=== PATIENT | male | born 1950 | race Caucasian/White ===

== ENCOUNTER 2020-01-11 09:31 | Emergency (ER) | payer OTHER, MEDICARE ==
--- OUTSIDE RECORDS SUMMARY | 2020-01-11 09:34 | XMS REPORT ---
:1950 Author Organization [facility] t Address [address] [place] [address] Care Team Providers Name Role Phone Unavailable Unavailable Unavailable Payers Payer Name Policy Type Policy Number Effective Date Expiration D ate Problems This patient has no known problems. Allergies, Adverse Reactions, Alerts Allergy Allergy Status Severity Reaction(s) Onset Inactive Treating C omments Name Type Date Date Clinician codeine DA Active MO 2019-04 00:00:0 0 codeine DA Active MO 2019-03 00:00:0 0 Medications This patient has no known medications. Results Test Description Test Time Test Comments Text Results Atomic Results Result Comments - MRI LW JNT W/O CONT RT 2019-05-01 15:15:00 Patient Name: KAROL BERMAN Unit No: [id number] EXAMS: CPT COD E: [id number] MRI LW JNT W/[place] [id number] MRI OF T HE RIGHT KNEE, WITHOUT CONTRAST DIAGNOSIS: 1. 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 Vertically oriented signal i s seen in the periphery of the body medial meniscus which is indet erminate and may be related to recent arthroscopy. A small recurr ent tear cannot be excluded. 2. There is a small horizontal tear free edge body of the latera l meniscus which was not evide nt on the previous exam. 3. Reactive bone marrow edema m edial tibial plateau. No evidence of fracture. 4. Small full-thickness chondral defe ct overlying the superior aspec t medial patellar facet unchan ged from the previous exam. 5. Small proximal ACL ganglion cyst unchanged in the interval fr om the previous exam. 6. Mild prepatellar bursitis. Mild proximal patellar tendinitis COMPARISON EXAM: The c urrent exam is compared to a previo us exam dated March 27, 2019. TECHNIQUE: Sagittal, axi al and coronal fat-sat spin density , sagittal T1 and sagitt al oblique T2-weighted sequence s are obtained of the descri bed right knee. C LINICAL HISTORY: FIND INGS: MENISCI: Medial a nd lateral meniscal abnormaliti es as described. CR UCIATE LIGAMENTS: ACL is intact. P CL is intact. COLLA TERAL LIGAMENTS: Medial and later al collateral ligaments as well as the quadriceps tendons is intact. Mild proximal patellar tendinitis. OS SEOUS STRUCTURES: Low-grade chondr al loss overlying the medial f emoral condyle. Bone marrow edema medial tibial plateau. PATELLOFEMORAL COMPARTMENT: Chondral abnormality involving the patellofemoral joint. No pa tellar tilt, or subluxation. Media l and lateral patellar retinacu la are intact. SOFT T ISSUES: Small joint effusion. No po pliteal cyst. No soft tissue masses. [facility] NAME: KAROL BERMAN JR [address] [facility] PHYS: Lito Ramires : 1950 AGE: 68 SEX: M [place], [place] [address] LOC: Y.MRI PHONE #: [phone] EXAM DATE: 05/01/2019 STA TUS: REG CLI FAX #: [phone] RAD #: D/C DT PAGE 1 Signed Report (CONTINUED) Patient Name: KAROL BERMAN JR Unit No: [id number] EXAMS: CPT CODE: [id number] M RI LW JNT W/[place] [id number] <Contin ued> Electronically S igned by Jodi Frausto MD on 05/01/20 19 at 1515 Reported and signed by: Jodi Frausto MD CC: Lito Low MD Technologist: BAB U, FEBIN MRI Transcribed D/T: 04/03 (6924) t.OBEDR.GVG [facility] NAME: KAROL BERMAN [address] [facility] PHYS: Lito Ramires : 1950 AGE: 68 SEX: M [place], [place] [address] LOC: Y.MRI PHONE #: [phone] EXAM DATE: 05/01/2019 STA TUS: REG CLI FAX #: [phone] RAD #: D/C DT PAGE 2 Signed Report Patient Name: KAROL BERMAN Unit No: [id number] EXAMS: CPT CODE: [id number] M RI LW JNT W/[place] [id number] <Contin ued> Orig Print D/T: S: 9 (6883) [facility] NAME: KAROL BERMAN [facility] [address] [facility] PHYS: Lito Ramires : 1950 AGE: 68 SEX: M [place] [address] LOC : Y.MRI PHONE #: [phone] EXAM DATE: 05/01/2019 S TATUS: REG CLI FAX #: RAD #: D/C DT PAGE 3 Signed Report - MRI LW JNT W/O CONT RT 2019-03-27 12:37:00 Patient Name: KAROL BERMAN Unit No: [id number] EXAMS: CPT CODE: [id number] MRI LW JNT W/[place] [id number] MRI OF T HE RIGHT KNEE, WITHOUT CONTRAST DIAGNOSIS: Hor izontal tear posterior horn and body medial meniscus. There is a small superimposed radial tear ape x posterior horn medial menisc us 2. 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 3. Prox imal ACL ganglion cyst. COMPARISON EXAM: None TECHNIQUE: Sagittal, axial a nd coronal fat-sat spin density , sagittal T1 and sagitt al oblique T2-weighted sequence s are obtained of the descri bed right knee. C LINICAL HISTORY: FIND INGS: MENISCI: Medial m eniscal tears as described. Lateral meniscus is intact. CRUCIATE LIGAMENTS: ACL is intact. ACL ganglion cyst. PCL is intact. COLLAT ERAL LIGAMENTS: Medial and later al collateral ligaments as well as patellar and quadriceps t endons are intact. O SSEOUS STRUCTURES: No significant c hondral abnormality medial and lateral compartment knee joint. Vis ualized bony structures of the femur and tibia are within normal limits in signal. PATELLOFEMORAL COMPARTMENT: Chondral abnormality as described abo ve involving the patellofemoral joint. No patellar tilt, or subluxa tion. Medial and lateral mccall lar retinacula are intact. SOFT TISSUES: No significan t joint effusion. No popliteal cyst . No soft tissue masses. Electronically Sign ed by Jodi Frausto MD on 03/27/2019 at 4611 Repo rted and signed by: Jodi Frausto MD [facility] NAME: KAROL BERMAN [address] [place] [address] PHYS: Lito Ramires : 1950 AGE: 68 SEX: M [place] [address] LOC : Y.MRI PHONE #: [phone] EXAM DATE: 03/27/2019 S TATUS: REG CLI FAX #: [phone] RAD #: D/C DT PAGE 1 Signed Report (CONTINUED) Patient Name: KAROL BERMAN Unit No: [id number] EXAMS: CPT CODE: [id number] M RI LW JNT W/[place] [id number] <Contin ued> CC: Lito Low MD Technologist: Jeffrey Licona,RT(R) Transcribed D/ (3217) t.GVG [facility] NAME : KAROL BERMAN [address] [place] [address] PHYS: ALLIEWAYLON Lito Allen : 1950 AGE: 68 SEX: M [place], [place] [address] LOC: Y.MRI PHONE #: [phone] EXAM DATE: 03/27/2019 STA TUS: REG CLI FAX #: [phone] RAD #: D/C DT PAGE 2 Signed Report Patient Name: KAROL BERMAN Unit No: [id number] EXAMS: CPT CODE: [id number] M RI LW JNT W/[place] [id number] <Contin ued> Orig Print D/T: S: 9 (1240) [facility] NAME: KAROL BERMAN [address] [facility] PHYS: Lito Ramires : 1950 AGE: 68 SEX: [place], [place] [address] LOC : Y.MRI PHONE #: [phone] EXAM DATE: 03/27/2019 S TATUS: REG CLI FAX #: [phone] RAD #: D/C DT PAGE 3 Signed Report
[2020-01-11] MEDS ORDERED: TETANUS & DIPHTHERIA TOX,ADULT 0.5 ML VIAL ONE (10:00)
--- NOTE | 2020-01-11 10:33 | RAD REPORT ---
EXAM DESCRIPTION: - Finger-Thumb Left - 01/11/2020 10:12 am CLINICAL HISTORY: injurylaceration, table saw injury, History indicates left index finger injury COMPARISON: No comparisons TECHNIQUE: A three-view left hand examination was performed centered on the left thumb and left inde x finger. FINDINGS: Three-view examination was performed. There is no fracture, dislocation or acute bone proc ess seen. Advanced degenerative change present at the trapezial first metacarpal articulation. The amanda int space is narrowed with sclerotic and spurring changes along the articular surfaces. There is soft tissue calcification posterior to the joint. This is unrelated to the acute injury. Specific site of laceration is not indicated. No joint abnormality seen. No foreign body in the soft tissues. IMPRESSION: No acute bone or joint finding. Prominent degenerative change as detailed at the trapezi al first metacarpal joint. No foreign body in the soft tissues.
[2020-01-11] MEDS ORDERED: BUPIVACAINE 0.5% PF 10 ML VIAL ONE (10:35)
[2020-01-11] MEDS ORDERED: LIDOCAINE 1% 20 ML MDV ONE (10:35)
--- NOTE | 2020-01-11 11:12 | EDPHYS ---
Physician Documentation [facility] Name: Guillermo Avina Jr Age: 69 yrs Sex: Male : 1950 Arrival Date: 01/11/2020 Time: 09:35 Bed 17 Private MD: Bryce Mann E ED Physician Collin Trujillo HPI: 01/10 09:50 This 69 yrs old Male presents to ER via Ambulatory with complaints of Finger cp Injury. 09:50 The patient or guardian reports injury, a laceration, pain, tenderness. cp 09:50 The complaints affect the distal phalanx left index finger. Context: The problem was cp sustained at home, resulted from use of tablesaw. Onset: The symptoms/episode began/occurred just prior to arrival. Associated signs and symptoms: Pertinent negatives: numbness distally. Historical: - Allergies: 09:50 Codeine; ss - Immunization history:: Adult Immunizations up to date. - Social history:: Smoking status: Patient denies any tobacco usage or history of. ROS: 09:55 Constitutional: Negative for body aches, chills, fever, poor PO intake. cp 09:55 Eyes: Negative for injury, pain, redness, and discharge. cp 09:55 Cardiovascular: Negative for chest pain. 09:55 Respiratory: Negative for cough, shortness of breath, wheezing. 09:55 Abdomen/GI: Negative for abdominal pain, nausea, vomiting, and diarrhea. 09:55 Skin: Positive for laceration(s), of the distal phalanx left index finger. 09:55 All other systems are negative. Exam: 10:05 Constitutional: The patient appears in no acute distress, alert, awake, well developed, cp well nourished. 10:05 Head/Face: Normocephalic, atraumatic. cp 10:05 Musculoskeletal/extremity: Extremities: grossly normal except: noted in the distal phalanx left index finger: deformity, pain, tenderness, noted avulsion of skin and partial nail, Perfusion: the extremity is normally perfused throughout, Sensation intact. Vital Signs: 09:47 Pulse 54; Resp 17; Temp 98.6; Pulse Ox 98% ; Weight 117.93 kg; Height 6 ft. 0 in. ss (182.88 cm); 09:51 BP 184 / 87; em 09:47 Body Mass Index 35.26 (117.93 kg, 182.88 cm) ss MDM: 09:46 Patient medically screened. cp 11:00 Differential diagnosis: open fracture, laceration, nail avulsion. cp 11:10 Data reviewed: vital signs, nurses notes, radiologic studies, plain films, and as a cp result, I will discharge patient. 11:17 ED course: [place] prescription monitoring program shows narcotic score of 110 and cp sedative score of 60. 01/10 09:49 Order name: XRAY Finger-Thumb Left: left index finger; Complete Time: 10:40 cp 01/10 10:40 Interpretation: Report reviewed. 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 Exp: em 11/15/2021. Lot #: [id number]. } Route: IM; Site: right deltoid; 11:20 Follow up: Response: No adverse reaction 10:36 Drug: Lidocaine (1 %) 10 ml {Note: adminisitered by PA. Naman} Volume: 20 ml; Route: em Infiltration; 10:36 Drug: Bupivacaine (0.5 %) 10 ml {Note: adminisitered by Naman PA.} Volume: 10 ml; em Route: Infiltration; Disposition: 18:49 Co-signature as Attending Physician, Collin Trujillo MD I agree with the assessment and kdr plan of care. Disposition: 01/11/20 11:11 Discharged to Home. Impression: Laceration without foreign body of left index finger with damage to nail. - Condition is Stable. - Discharge Instructions: Laceration Care, Adult. - Prescriptions for Tramadol 50 mg Oral Tablet - take 1 tablet by ORAL route every 8 hours As needed as needed; 20 tablet. Keflex 500 mg Oral Capsule - take 1 capsule by ORAL route every 8 hours for 10 days; 30 capsule. - Medication Reconciliation Form, Thank You Letter, Antibiotic Education, Prescription Opioid Use form. - Follow up: Bryce Mann MD; When: 2 - 3 days; Reason: Wound Recheck. - Problem is new. - Symptoms have improved. Signatures: Dispatcher [employer] Collin Gatica MD MD [facility] Sean Ascencio RN RN em Sherri Lowe RN RN Naman Herron PA PA cp Corrections: (The following items were deleted from the chart) 11:21 11:11 01/11/2020 11:11 Discharged to Home. Impression: Laceration without foreign body ss of left index finger with damage to nail. Condition is Stable. Forms are Medication Reconciliation Form, Thank You Letter, Antibiotic Education, Prescription Opioid Use. Follow up: Bryce Mann; When: 2 - 3 days; Reason: Wound Recheck. Problem is new. Symptoms have improved. cp
--- NOTE | 2020-01-11 11:12 | ER ---
Nurse's Notes [facility] Name: Guillermo Avina Jr Age: 69 yrs Sex: Male : 1950 Arrival Date: 01/11/2020 Time: 09:35 Bed 17 Private MD: Bryce Mann E Diagnosis: Laceration without foreign body of left index finger with damage to nail Presentation: 01/10 09:47 Chief complaint: Patient states: laceration to L index finger sustained 45 minutes ago ss by table saw. No active bleeding noted at this time. PT reports he is currently taking Plavix and is unsure when his last tetanus shot was. Coronavirus screen: Proceed with normal triage. Patient denies a cough. Patient denies shortness of breath or difficulty breathing. Patient denies measured and/or subjective temperature greater than 100.4F prior to today's visit. Patient denies travel on a cruise ship or to a country the [facility] currently lists as an affected area. Patient denies contact with known and/or suspected case of COVID-19. Ebola Screen: Patient denies exposure to infectious person. Patient denies travel to an Ebola-affected area in the 21 days before illness onset. Initial Sepsis Screen: Does the patient have a suspected source of infection? No. Patient's initial sepsis screen is negative. Initial Sepsis Screen: Does the patient meet any 2 criteria? No. Patient's initial sepsis screen is negative. Risk Assessment: Do you want to hurt yourself or someone else? Patient reports no desire to harm self or others. Onset of symptoms was January 11, 2020. 09:47 Method Of Arrival: Ambulatory ss 09:47 Acuity: NICKI 4 ss Historical: - Allergies: 09:50 Codeine; ss - Immunization history:: Adult Immunizations up to date. - Social history:: Smoking status: Patient denies any tobacco usage or history of. Assessment: 09:51 General: Appears in no apparent distress. comfortable, Behavior is calm, cooperative, em Denies fever. Pain: Complains of pain in left index fingernail. Neuro: Level of Consciousness is awake, alert, obeys commands, Oriented to person, place, time, situation, Appropriate for age. Cardiovascular: Capillary refill < 3 seconds Patient's skin is warm and dry. Respiratory: Airway is patent Respiratory effort is even, unlabored, Respiratory pattern is regular, symmetrical. GI: Abdomen is flat. Derm: Skin is intact, is healthy with good turgor, Skin is pink, warm \T\ dry. Musculoskeletal: Capillary refill < 3 seconds, Range of motion: intact in all extremities. Injury Description: Laceration sustained to left index fingernail is clean, 0.5 to 2.5 cm long, not bleeding, was sustained less than 30 minutes ago. a small amount of bleeding noted at this time. Vital Signs: 09:47 Pulse 54; Resp 17; Temp 98.6; Pulse Ox 98% ; Weight 117.93 kg; Height 6 ft. 0 in. ss (182.88 cm); 09:51 BP 184 / 87; em 09:47 Body Mass Index 35.26 (117.93 kg, 182.88 cm) ss ED Course: 09:35 Patient arrived in ED. am2 09:36 Bryce Mann MD is Private Physician. am2 09:43 Sean Ascencio, RN is Primary Nurse. em 09:44 Naman Herron PA is PHCP. cp 09:44 Collin Trujillo MD is Attending Physician. cp 09:50 Triage completed. ss 09:50 Arm band placed on right wrist. ss 10:12 XRAY Finger-Thumb Left: left index finger In Process Unspecified. EDMS 11:09 Bryce Mann MD is Referral Physician. cp 11:21 No provider procedures requiring assistance completed. Patient did not have IV access ss during this emergency room visit. 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 Exp: em 11/15/2021. Lot #: [id number]. } Route: IM; Site: right deltoid; 11:20 Follow up: Response: No adverse reaction ss 10:36 Drug: Lidocaine (1 %) 10 ml {Note: adminisitered by AUSTIN Florence.} Volume: 20 ml; Route: em Infiltration; 10:36 Drug: Bupivacaine (0.5 %) 10 ml {Note: adminisitered by AUSTIN Florence.} Volume: 10 ml; em Route: Infiltration; Outcome: 11:11 Discharge ordered by MD. cp 11:21 Discharged to home ambulatory, with family. ss 11:21 Condition: good 11:21 Discharge instructions given to patient, Instructed on discharge instructions, follow up and referral plans. medication usage, wound care, Demonstrated understanding of instructions, follow-up care, medications, Prescriptions given X 2. 11:21 Patient left the ED. Signatures: Dispatcher [employer] Sean Hoskins, RN Sherri Brantlye RN RN ss Naman Herron PA PA cp Moreno, Amanda am2
[2020-01-11 11:32] VITALS: BP 184/87
[2020-01-11 11:33] VITALS: TEMP 98.6; O2SAT 98
== END 2020-01-11 11:21 | disposition home or self-care (01) ==
LOC: ER 09:31
DX: S61.311A Laceration without foreign body of left index finger with damage to nail, initial encounter (principal); W31.2XXA Contact with powered woodworking and forming machines, initial encounter; Y92.009 Unspecified place in unspecified non-institutional (private) residence as the place of occurrence of the external cause; Z23 Encounter for immunization
CPT/HCPCS: 90471; 90714; 99283

== ENCOUNTER 2020-11-09 10:33 | Emergency (ER) | payer OTHER, MEDICARE ==
--- NOTE | 2020-11-09 12:21 | RAD REPORT ---
EXAM DESCRIPTION: RAD - Wrist Left 3 View - 11/09/2020 11:50 am CLINICAL HISTORY: PAIN Pain COMPARISON: Finger-Thumb Left dated 01/11/2020 FINDINGS: A calcific density is seen along the dorsum of the wrist. This calcific density was presen t on the 01/11/2020 prior study but appears to have increased in size since then. Elsewhere, no acut e fracture is seen. IMPRESSION: No acute fracture is evident. There has been increase in soft tissue calcific density along the dorsum of the wrist since 0 study. The adjacent soft tissues are mildly thickened. A follow-up nonemergent MRI of the wrist wit h contrast would be recommended for further assessment.
--- NOTE | 2020-11-09 12:30 | EDPHYS ---
Physician Documentation [facility] Name: Guillermo Avina Jr Age: 70 yrs Sex: Male : 1950 Arrival Date: 11/09/2020 Time: 10:35 Bed 24 Private MD: Bryce Mann E ED Physician David Awad HPI: 11/09 11:41 This 70 yrs old Male presents to ER via Ambulatory with complaints of Fall pm1 Injury, Hand Injury. 11:41 Details of fall: The patient fell from an upright position, while walking. Onset: The pm1 symptoms/episode began/occurred this morning, at 10:00. Associated injuries: The patient sustained left wrist. Severity of symptoms: in the emergency department the symptoms have improved, took 3 aspirins at home for the pain. The patient has not experienced similar symptoms in the past. Patient tripped inside his home and landed on his left arm. Presenting with left wrist and hand pain. No headache, head injury, neck pain, LOC. Historical: - Allergies: 10:52 Codeine; sv - PMHx: 10:52 None; sv - PSHx: 10:52 right knee; cherelle shoulder; R wrist; C4,5,6 fusion; sv - Immunization history:: Adult Immunizations up to date. - Social history:: Smoking status: Patient denies any tobacco usage or history of. ROS: 11:41 Constitutional: Negative for fever, chills, and weight loss, Cardiovascular: Negative pm1 for chest pain, palpitations, and edema, Respiratory: Negative for shortness of breath, cough, wheezing, and pleuritic chest pain, Back: Negative for injury and pain. 11:41 Skin: Negative for injury, rash, and discoloration, Neuro: Negative for headache, weakness, numbness, tingling, and seizure. 11:41 MS/extremity: Positive for pain, of the left hand and left wrist, Negative for decreased range of motion, deformity. Exam: 11:41 Constitutional: This is a well developed, well nourished patient who is awake, alert, pm1 and in no acute distress. Head/Face: Normocephalic, atraumatic. 11:41 Skin: Warm, dry with normal turgor. Normal color with no rashes, no lesions, and no evidence of cellulitis. 11:41 Neck: External neck: is normal, no acute changes, C-spine: vertebral tenderness, is not appreciated, ROM/movement: is normal, is supple, without pain, no range of motions limitations. 11:41 Cardiovascular: Exam negative for acute changes, Rate: normal, Rhythm: regular, Pulses: no pulse deficits are appreciated. 11:41 Respiratory: Exam negative for acute changes, respiratory distress, shortness of breath. 11:41 Musculoskeletal/extremity: Extremities: grossly normal except: noted in the tenderness just distal to left wrist on dorsal aspect of left hand: There is no evidence of decreased ROM, scaphoid tenderness. 11:41 Neuro: Exam negative for acute changes, Orientation: is normal, Mentation: is normal, Motor: is normal, moves all fours. Vital Signs: 10:53 BP 163 / 98; Pulse 61; Resp 16; Temp 97; Pulse Ox 99% on R/A; Weight 117.93 kg; Height sv 6 ft. 0 in. (182.88 cm); Pain 6/10; 10:53 Body Mass Index 35.26 (117.93 kg, 182.88 cm) sv MDM: 11:26 Patient medically screened. pm1 11:41 ED course: Patient refused pain medications offered in the ER. pm1 11:45 Data reviewed: vital signs. pm1 12:29 Counseling: I had a detailed discussion with the patient and/or guardian regarding: the pm1 historical points, exam findings, and any diagnostic results supporting the discharge/admit diagnosis, radiology results, the need for outpatient follow up, to return to the emergency department if symptoms worsen or persist or if there are any questions or concerns that arise at home. 11/09 10:57 Order name: Wrist Left (3 View) XRAY; Complete Time: 12:26 sv 11/09 12:26 Order name: Splint - Wrist; Complete Time: 12:59 pm1 Administered Medications: No medications were administered Disposition: 14:33 Co-signature as Attending Physician, David Awad MD. rn Disposition: 11/09/20 12:29 Discharged to Home. Impression: Unspecified sprain of left wrist. - Condition is Stable. - Discharge Instructions: RICE for Routine Care of Injuries, Wrist Pain, Wrist Splint. - Prescriptions for Tramadol 50 mg Oral Tablet - take 1 tablet by ORAL route every 8 hours as needed; 12 tablet. - Medication Reconciliation Form, Thank You Letter, Antibiotic Education, Prescription Opioid Use form. - Follow up: Emergency Department; When: As needed; Reason: Worsening of condition. Follow up: Private Physician; When: 2 - 3 days; Reason: Recheck today's complaints, Continuance of care, Re-evaluation by your physician. - Problem is new. - Symptoms have improved. Signatures: Dispatcher [employer] EDElena Multani RN RN David Awad MD MD rn Smirch, Shelby, RN RN ss Marinas, Patrick, [employer] pm1 Corrections: (The following items were deleted from the chart) 12:59 12:29 11/09/2020 12:29 Discharged to Home. Impression: Unspecified sprain of left ss wrist. Condition is Stable. Forms are Medication Reconciliation Form, Thank You Letter, Antibiotic Education, Prescription Opioid Use. Follow up: Emergency Department; When: As needed; Reason: Worsening of condition. Follow up: Private Physician; When: 2 - 3 days; Reason: Recheck today's complaints, Continuance of care, Re-evaluation by your physician. Problem is new. Symptoms have improved. pm1
--- NOTE | 2020-11-09 12:30 | ER ---
Nurse's Notes [facility] Name: Guillermo Avina Jr Age: 70 yrs Sex: Male : 1950 Arrival Date: 11/09/2020 Time: 10:35 Bed 24 Private MD: Bryce Mann E Diagnosis: Unspecified sprain of left wrist Presentation: 11/09 10:50 Chief complaint: Patient states: left hand and wrist pain after tripping and falling to the ground and landing on the left hand/wrist. Coronavirus screen: Client denies travel out of the [place] in the last 14 days. At this time, the client does not indicate any symptoms associated with coronavirus-19. Ebola Screen: No symptoms or risks identified at this time. Risk Assessment: Do you want to hurt yourself or someone else? Patient reports no desire to harm self or others. Onset of symptoms was November 09, 2020. 10:50 Method Of Arrival: Ambulatory sv 10:50 Acuity: NICKI 4 sv 10:53 Initial Sepsis Screen: Does the patient meet any 2 criteria? No. Patient's initial sv sepsis screen is negative. Does the patient have a suspected source of infection? No. Patient's initial sepsis screen is negative. Historical: - Allergies: 10:52 Codeine; sv - PMHx: 10:52 None; sv - PSHx: 10:52 right knee; cherelle shoulder; R wrist; C4,5,6 fusion; sv - Immunization history:: Adult Immunizations up to date. - Social history:: Smoking status: Patient denies any tobacco usage or history of. Screenin:37 Abuse screen: Denies threats or abuse. Denies injuries from another. Nutritional ss screening: No deficits noted. Tuberculosis screening: Never had TB. Fall Risk None identified. Assessment: 10:57 Reassessment: Received VO for hand xray from Dr Awad. sv 11:37 General: Appears in no apparent distress. comfortable, Behavior is calm, cooperative. ss Pain: Complains of pain in left wrist Pain currently is 6 out of 10 on a pain scale. Quality of pain is described as tender, Pain began suddenly, Is continuous. Neuro: Level of Consciousness is awake, alert, obeys commands, Oriented to person, place, time, situation, Speech is normal. Cardiovascular: Pulses are palpable in right radial artery and left radial artery. Respiratory: Airway is patent Respiratory effort is even, unlabored, Respiratory pattern is regular, symmetrical. GI: No signs and/or symptoms were reported involving the gastrointestinal system. : No signs and/or symptoms were reported regarding the genitourinary system. EENT: Oral mucosa is moist. Derm: Skin is intact, is healthy with good turgor, Skin is dry, Skin is pink, warm \T\ dry. normal. Musculoskeletal: Circulation, motion, and sensation intact. Range of motion: intact in all extremities, Swelling absent. 12:20 Reassessment: Patient appears in no apparent distress at this time. Patient and/or ss family updated on plan of care and expected duration. Pain level reassessed. awaiting XRAY results. Vital Signs: 10:53 BP 163 / 98; Pulse 61; Resp 16; Temp 97; Pulse Ox 99% on R/A; Weight 117.93 kg; Height sv 6 ft. 0 in. (182.88 cm); Pain 6/10; 10:53 Body Mass Index 35.26 (117.93 kg, 182.88 cm) sv ED Course: 10:35 Patient arrived in ED. mr 10:36 Bryce Mann MD is Private Physician. mr 10:52 Triage completed. sv 10:53 Arm band placed on. sv 11:26 Jeffrey Arias NP is PHCP. pm1 11:26 David Awad MD is Attending Physician. pm1 11:37 Sherri Lowe RN is Primary Nurse. ss 11:37 Patient has correct armband on for positive identification. Bed in low position. Call ss light in reach. 11:45 X-ray completed. Portable x-ray completed in exam room. Patient tolerated procedure ml well. 11:46 Wrist Left (3 View) XRAY In Process Unspecified. EDMS 12:59 No provider procedures requiring assistance completed. Patient did not have IV access ss during this emergency room visit. Velcro wrist splint applied to left wrist. Administered Medications: No medications were administered Outcome: 12:29 Discharge ordered by . pm1 12:59 Discharged to home ambulatory. ss 12:59 Condition: good 12:59 Discharge instructions given to patient, family. 12:59 Instructed on discharge instructions, follow up and referral plans. medication usage, Demonstrated understanding of instructions, follow-up care, medications, Prescriptions given X 1. 12:59 Patient left the ED. ss Signatures: Dispatcher [employer] EDMS Elena Bowen RN RN sv Hannah Krishnamurthy mr Damion, Sherri Owen RN RN ss Jeffrey Arias, PUBLIC SERVICE ADMINISTRATOR PUBLIC SERVICE ADMINISTRATOR pm1 Corrections: (The following items were deleted from the chart) 10:56 10:53 Pulse 61bpm; Resp 16bpm; Pulse Ox 99% RA; Temp 97F; 117.93 kg; Height 6 ft. 0 sv in.; BMI: 35.2; sv
--- OUTSIDE RECORDS SUMMARY | 2020-11-10 21:40 | XMS REPORT | Continuity of Care Document ---
:1950 Author Organization [facility] t Address [address] [place] [address] Care Team Providers Name Role Phone Unavailable Unavailable Unavailable Payers Payer Name Policy Type Policy Number Effective Date Expiration Date S ource Problems This patient has no known problems. Allergies, Adverse Reactions, Alerts Allergy Allergy Status Severity Reaction(s) Onset Inactive Treating Comm ents Source Name Type Date Date Clinician jessica PUTNAM Active [place] [facility] 7-05 [facility] 00:00: d 00 [facility] [place] jessica DA Active [place] [facility] 6 [place] 00:00: Orthope 00 [facility] Medications This patient has no known medications. Procedures This patient has no known procedures. Results Test Description Test Time Test Comments Results Result [facility] e Comments - XR ESOPHAGUS 2020-08-07 15:40:00 [facility] 1950 Sex: M Name: KAROL BERMAN JR [facility] : 1950 Age/S: 70 / M [address] Unit #: [id number] Loc: [place] [address] Phys: Quinten Goddard III, MD Acct: [id number] Dis Date: Status: REG CLI PHONE #: [phone] Exam Date: 08/07/2020929 FAX #: Reason: PHARYNGOESOPHAGEAL DYSPHAGIA EXAMS: CPT: [id number] XR ESOPHAGUS [id number] Fluoro Time: 312 SEC DAP (Gy m2): Air Kerma (mGy): EXAMINATION: - XR ESOPHAGUS. LOCATION: S17. HISTORY: Pharyngoesophageal Dysphagia, difficulty swallowing pills and solid foods. COMPARISON: None. TECHNIQUE: Single and double contrast upper GI was performed with barium oral contrast and overhead spot films were obtained. Fluoroscopic time: 312 seconds. 59.971 mGy. FINDINGS: [employer]ist image of the chest appears unremarkable with ACDF involving cervical spine. The esophagus is unremarkable in course and caliber. Esophageal mucosal pattern is unremarkable. Gastroesophageal junction is normally positioned with questionable small hiatal hernia. The visualized proximal stomach appears unremarkable. Esophageal peristalsis is unremarkable. Gastroesophageal reflux was not seen during the procedure. Contrast residue was noted in hypopharynx. Minimal contrast penetration was observed in larynx. 13 mm barium pill was lodged in the epiglottis. IMPRESSION: Contrast residue noted in hypopharynx with 13 mm barium pill lodged in epiglottis. Minimal contrast penetration was observed in larynx. Consider speech therapy evaluation. at 1540 Reported and signed by: Randi Mueller M.D. CC: Quinten Goddard III, MD PAGE 1 Signed Report Name: KAROL BERMAN JR [facility] : 1950 Age/S: 70 / M [address] Unit #: [id number] Loc: [place] [address] Phys: Quinten Goddard III, MD Acct: [id number] Dis Date: Status: REG CLI PHONE #: [phone] Exam Date: 08/07/2020929 FAX #: Reason: PHARYNGOESOPHAGEAL DYSPHAGIA EXAMS: CPT: [id number] XR ESOPHAGUS [id number] Fluoro Time: 312 SEC DAP (Gy m2): Air Kerma (mGy): <Continued> Technologist: Maura Joe, RT(R) Trnscb Date/Time: 08/07/2020 (1540) [email or web address] Orig Print D/T: S: 08/07/2020 (5666) PAGE 2 Signed Report - MRI LW JNT W/O 2019-05-01 Patient Name: CONT RT 15:15:00 KAROL BERMAN Unit No: [id number] EXAMS: CPT CODE: [id number] MRI LW JNT W/[place] [id number] MRI OF THE RIGHT KNEE, WITHOUT CONTRAST DIAGNOSIS: 1. There is attenuation of the posterior horn and body of the medial meniscus compatible with previous partial medial meniscectomy. Vertically oriented signal is seen in the periphery of the body medial meniscus which is indeterminate and may be related to recent arthroscopy. A small recurrent tear cannot be excluded. 2. There is a small horizontal tear free edge body of the lateral meniscus which was not evident on the previous exam. 3. Reactive bone marrow edema medial tibial plateau. No evidence of fracture. 4. Small full-thickness chondral defect overlying the superior aspect medial patellar facet unchanged from the previous exam. 5. Small proximal ACL ganglion cyst unchanged in the interval from the previous exam. 6. Mild prepatellar bursitis. Mild proximal patellar tendinitis COMPARISON EXAM: The current exam is compared to a previous exam dated March 27, 2019. TECHNIQUE: Sagittal, axial and coronal fat-sat spin density, sagittal T1 and sagittal oblique T2-weighted sequences are obtained of the described right knee. CLINICAL HISTORY: FINDINGS: MENISCI: Medial and lateral meniscal abnormalities as described. CRUCIATE LIGAMENTS: ACL is intact. PCL is intact. COLLATERAL LIGAMENTS: Medial and lateral collateral ligaments as well as the quadriceps tendons is intact. Mild proximal patellar tendinitis. OSSEOUS STRUCTURES: Low-grade chondral loss overlying the medial femoral condyle. Bone marrow edema medial tibial plateau. PATELLOFEMORAL COMPARTMENT: Chondral abnormality involving the patellofemoral joint. No patellar tilt, or subluxation. Medial and lateral patellar retinacula are intact. SOFT TISSUES: Small joint effusion. No popliteal cyst. No soft tissue masses. [facility] NAME: KAROL BEMRAN [address] [facility] PHYS: Lito Ramires Enrique : 1950 AGE: 68 SEX: M [place], [place] [address] LOC: Y.MRI PHONE #: [phone] EXAM DATE: 05/01/2019 STATUS: REG CLI FAX #: [phone] RAD #: D/C DT PAGE 1 Signed Report (CONTINUED) Patient Name: KAROL BERMAN Unit No: [id number] EXAMS: CPT CODE: [id number] MRI LW JNT W/[place] [id number] <Continued> at 1515 Reported and signed by: Jodi Frausto MD CC: Lito Low MD Technologist: ERIC PALMA MRI Transcribed D/ (1515) BarbaraGVG [facility] NAME: KAROL BERMAN [address] [facility] PHYS: AAKASH LowLito : 1950 AGE: 68 SEX: M [place], [place] [address] LOC: Y.MRI PHONE #: [phone] EXAM DATE: 05/01/2019 STATUS: REG CLI FAX #: [phone] RAD #: D/C DT PAGE 2 Signed Report Patient Name: KAROL BERMAN Unit No: [id number] EXAMS: CPT CODE: [id number] MRI LW JNT W/[place] [id number] <Continued> Orig Print D/T: S: 05/01/2019 (1518) [facility] NAME: KAROL BERMAN [address] [facility] PHYS: AAKASH LowLito : 1950 AGE: 68 SEX: M [place], [place] [address] LOC: Y.MRI PHONE #: [phone] EXAM DATE: 05/01/2019 STATUS: REG CLI FAX #: [phone] RAD #: D/C DT PAGE 3 Signed Report - MRI LW JNT W/O 2019-03-27 Patient Name: CONT RT 12:37:00 KAROL BERMAN Unit No: [id number] EXAMS: CPT CODE: [id number] MRI LW JNT W/[place] [id number] MRI OF THE RIGHT KNEE, WITHOUT CONTRAST DIAGNOSIS: Horizontal tear posterior horn and body medial meniscus. There is a small superimposed radial tear apex posterior horn medial meniscus 2. 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 3. Proximal ACL ganglion cyst. COMPARISON EXAM: None TECHNIQUE: Sagittal, axial and coronal fat-sat spin density, sagittal T1 and sagittal oblique T2-weighted sequences are obtained of the described right knee. CLINICAL HISTORY: FINDINGS: MENISCI: Medial meniscal tears as described. Lateral meniscus is intact. CRUCIATE LIGAMENTS: ACL is intact. ACL ganglion cyst. PCL is intact. COLLATERAL LIGAMENTS: Medial and lateral collateral ligaments as well as patellar and quadriceps tendons are intact. OSSEOUS STRUCTURES: No significant chondral abnormality medial and lateral compartment knee joint. Visualized bony structures of the femur and tibia are within normal limits in signal. PATELLOFEMORAL COMPARTMENT: Chondral abnormality as described above involving the patellofemoral joint. No patellar tilt, or subluxation. Medial and lateral patellar retinacula are intact. SOFT TISSUES: No significant joint effusion. No popliteal cyst. No soft tissue masses. at 1237 Reported and signed by: Jodi Frausto MD [facility] NAME: KAROL BERMAN [address] [facility] PHYS: Lito Ramires : 1950 AGE: 68 SEX: M [place], [place] [address] LOC: Y.MRI PHONE #: [phone] EXAM DATE: 03/27/2019 STATUS: REG CLI FAX #: [phone] RAD #: D/C DT PAGE 1 Signed Report (CONTINUED) Patient Name: KAROL BERMAN Unit No: [id number] EXAMS: CPT CODE: [id number] MRI LW JNT W/[place] [id number] <Continued> CC: Lito Low MD Technologist: Jeffrey Licona,RT(R) Transcribed D/ (1237) Zenon [facility] NAME: KAROL BERMAN [address] [facility] PHYS: Lito Ramires : 1950 AGE: 68 SEX: M [place], [place] [address] LOC: Y.MRI PHONE #: [phone] EXAM DATE: 03/27/2019 STATUS: REG CLI FAX #: [phone] RAD #: D/C DT PAGE 2 Signed Report Patient Name: KAROL BERMAN Unit No: [id number] EXAMS: CPT CODE: [id number] MRI LW JNT W/[place] [id number] <Continued> Orig Print D/T: S: 03/27/2019 (1240) [facility] NAME: KAROL BERMAN [address] [place] [address] PHYS: Lito Ramires : 1950 AGE: 68 SEX: M [place], [place] [address] LOC: Y.MRI PHONE #: [phone] EXAM DATE: 03/27/2019 STATUS: REG CLI FAX #: [phone] RAD #: D/C DT PAGE 3 Signed Report
== END 2020-11-09 12:59 | disposition home or self-care (01) ==
LOC: ER 10:33
DX: S63.502A Unspecified sprain of left wrist, initial encounter (principal); W01.0XXA Fall on same level from slipping, tripping and stumbling without subsequent striking against object, initial encounter; Y92.009 Unspecified place in unspecified non-institutional (private) residence as the place of occurrence of the external cause
CPT/HCPCS: 99283